=== PATIENT | female | born 1950 | race Caucasian/White ===

== ENCOUNTER → 2018-07-31 | Outpatient (CLI) | payer OTHER ==
[~2018-07-31] VITALS: Ht 149.9 cm; Wt 81.7 kg
[~2018-07-31] MED LIST: FOLIC ACID1 MG PO; HYDROCHLOROTHIA25 M2 PO; LIPITOR10 MG PO; PAROXETINE HCL20 MG PO; VITAMIN D-32000 UNIT PO
--- NOTE | 2018-08-01 16:06 | PATH ---
[facility] [place] [address] PATHOLOGY RPT PROCEDURE Name: JULITO LOO Room #: REG PARMINDER Avril.#: [id number] ������������������ Admission: 07/31/18 ������������������ Date of : 50 Discharge: Report #: [id number] Path Case #: [id number] [facility] Accession Number: [id number] . 01 Material submitted: . PART A: cecum - RANDOM BX CECUM AND ASCENDING COLON HX CROHNS R/O DYSPLASIA. Modifiers: ascending PART B: colon - RANDOM BX TRANSVERSE COLON HX CROHNS R/O DYSPLASIA. Modifiers: transverse PART C: colon - RANDOM BX DESCENDING COLON HX CROHNS R/O DYSPLASIA. Modifiers: descending PART D: colon - POLYP AT 50CM PART E: colon - RANDOM BX SIGMOID COLON HX CROHNS R/O DYSPLASIA. Modifiers: sigmoid PART F: rectum - RANDOM BX RECTUM HX CROHNS R/O DYSPLASIA . 01 Clinical history: . Pre-OP DX: Crohn's Post-OP DX: Colon polyp, diverticulosis, Hx Crohn's, rectal fistula . 02 Diagnosis: A. Large intestine, random cecum and ascending colon, endoscopic biopsy: - Mild chronic active colitis, history of Crohn's disease. - Negative for dysplasia or malignancy. . B. Large intestinal mucosa, transverse colon, endoscopic biopsy: - Mild chronic active colitis, history of Crohn's disease. - Negative for dysplasia or malignancy. . C. Large intestinal mucosa, random descending colon, endoscopic biopsy: - Mild chronic active colitis, history of Crohn's disease. - Negative for dysplasia or malignancy. . D. Polyp, at 50 cm, endoscopic biopsy: - Tubular adenoma. - Negative for high grade dysplasia. - Negative for active colitis. . E. Large intestinal mucosa, random sigmoid colon, endoscopic biopsy: - Quiescent colitis, history of Crohn's disease. - Negative for active colitis. - One fragment showing hyperplastic polyp with reactive changes. - Negative for dysplasia or malignancy. . F. Large intestinal mucosa, rectum, endoscopic biopsy: - Quiescent colitis, history of Crohn's disease. - Negative for active colitis. - One fragment showing hyperplastic polyp with reactive changes. [address] [address] PATHOLOGY RPT PROCEDURE Name: JULITO LOO Room #: REG PARMINDER Fonseca#: [id number] ������������������ Admission: 07/31/18 ������������������ Date of : 50 Discharge: Report #: [id number] Path Case #: [id number] - Negative for dysplasia or malignancy. . (IUV:mml; 08/01/2018) [facility]/08/01/2018 . 02 Electronically signed: . Vannessa Muhammad MD, Pathologist NPI- [id number] . 01 Gross description: . A. Received in formalin labeled "Julito Loo, random BX cecum and ascending colon, Hx Crohn's, rule out dysplasia," are multiple segments of brunson soft tissue measuring 2.0 x 0.5 x 0.2 cm in aggregate dimensions. The specimen is filtered and entirely submitted in cassette A1. . B. Received in formalin labeled "Julito Loo, random BX of transverse colon, Hx Crohn's, rule out dysplasia," are multiple segments of brunson soft tissue measuring 0.9 x 0.4 x 0.1 cm in aggregate dimensions. The specimen is filtered and entirely submitted in cassette B1. . C. Received in formalin labeled "Julito Loo, random BX descending colon, Hx Crohn's, rule out dysplasia," are multiple segments of brunson soft tissue measuring 1.5 x 0.6 x 0.2 cm in aggregate dimensions. The specimen is filtered and entirely submitted in cassette C1. . D. Received in formalin labeled "Julito Loo, polyp at 50 cm," is a 1.5 x 0.3 x 0.3 cm polypoid piece of brunson soft tissue. The margin is inked and the tissue is sectioned perpendicular to the margin and submitted in its entirely in cassette D1. . E. Received in formalin labeled "Julito Loo, random BX of sigmoid colon, Hx Crohn's, rule out dysplasia," are multiple segments of brunson soft tissue measuring 2.0 x 0.6 x 0.2 cm in aggregate dimensions. The specimen is filtered and entirely submitted in cassette E1. . F. Received in formalin labeled "Julito Loo, random BX of rectum, Hx Crohn's, rule out dysplasia," are multiple segments of brunson soft tissue measuring 1.5 x 0.4 x 0.1 cm in aggregate dimensions. The specimen is filtered and entirely submitted in cassette F1. (TSD; 07/31/2018) TOB/TOB . 02 Pathologist provided ICD-10: K52.9, D12.6, Z87.19 . 02 CPT . 949119, 894694, 460311, 915232, 879194, [id number] [address] [place] [address] PATHOLOGY RPT PROCEDURE Name: JULITO LOO Room #: REG [facility] M.R.#: [id number] ������������������ Admission: 07/31/18 ������������������ Date of : 50 Discharge: Report #: [id number] Path Case #: [id number] Specimen Comment: A courtesy copy of this report has been sent to Specimen Comment: [phone]. Specimen Comment: Report sent to Performed at: 01 [facility] Adelso Cruz [address] [facility] [address] [facility] [address] [facility] [address], [place], [place] [id number] MD Wood Hameed MD Phone: [phone] Performed at: [address] [facility] [address] [id number] MD Vannessa Muhammad MD Phone: [phone]
--- NOTE | 2018-08-02 10:54 | P ---
[facility] [place] [address] PROCEDURE REPORT Name: JULITO LOO Room #: REG [facility] Center[facility]elin[facility] [id number] Admission: 07/31/18 ������������������ Attend Phys: Rajinder Lozada MD Discharge: ������������������ Date of : 50 Report #: [id number] THIS REPORT FOR: //name// CC: EDY Lozada Physician staff OUTPATIENT COLONOSCOPY REPORT: BRIEF HISTORY: The patient is a 68-year-old woman with a history of Crohn disease of more than 20 years. She was initially diagnosed with ulcerative colitis, but later developed perianal fistulas. She has had a chronic rectovaginal fistula, which has not responded to surgical management. She presents for high risk screening colonoscopy due to her history of inflammatory bowel disease. She is not known to have small bowel disease. PREOPERATIVE DIAGNOSIS: Crohn disease, chronic. POSTOPERATIVE DIAGNOSES: 1. A 4-5 mm flat polyp at 50 cm. 2. Moderate sigmoid diverticulosis coli. 3. Rectal fistula. 4. Scarred mucosa consistent with previous Crohn's disease without evidence of active disease. MEDICATIONS: Deep sedation with propofol per anesthesia. SPECIMENS: 1. Random biopsies of cecum and ascending colon. 2. Random biopsies of transverse colon. 3. Random biopsies of descending colon. 4. Polyp at 50 cm. 5. Random biopsies of sigmoid colon. 6. Random biopsies of rectum. ESTIMATED BLOOD LOSS: 5 mL. PROCEDURE: Colonoscopy to cecum and terminal ileum with snare polypectomy and biopsy. FINDINGS: Prior to propofol sedation, procedure of colonoscopy was discussed with the patient as well as potential risks, benefits and complications. She indicates she understands and desires to proceed. DESCRIPTION OF PROCEDURE: With the patient in left lateral decubitus position, digital examination was completed. There was evidence of perianal scarring [facility] [address] [place] [address] PROCEDURE REPORT Name: JULITO LOO Room #: REG PARMINDER Fonseca#: [id number] Admission: 07/31/18 ������������������ Attend Phys: Rajinder Lozada MD Discharge: ������������������ Date of : 50 Report #: [id number] consistent with previous perianal disease. Subsequently, the Olympus video colonoscope was introduced in the rectum, advanced under direct vision to the cecum; done with minimal difficulty. The cecum was identified by the ileocecal valve and the appendiceal orifice. I was able to visualize the distal segment of terminal ileum. There is no evidence of active Crohn's disease. At that point, the scope was slowly withdrawn and careful circumferential views were obtained. Upon slow withdrawal of the scope, the prep was excellent. The mucosa was within normal limits, normal vascular pattern, normal light reflex. As we withdrew the scope, the mucosa was intact. Active Crohn's disease was not seen at any time during this examination. Random biopsies obtained of the colonic mucosa throughout. In the distal colon, there was evidence of scarring, again without evidence of active disease. In the descending colon, at 50 cm, a 4-5 mm flat polyp was removed by cold snare polypectomy. It has typical adenomatous appearance. Random biopsies obtained of the descending colon, and some random biopsies were obtained right at the site of the polypectomy. In the sigmoid colon, there was moderate sigmoid diverticular disease and endoscopic evidence of diverticulitis. Scope was withdrawn in the rectum and the mucosa was intact without evidence of active inflammatory disease. Upon retroflexion, tags were seen along the anal verge. In addition, at the dentate line, there was at least one not two chronic appearing fistula tracts without drainage. Scope was withdrawn. The patient tolerated the procedure well. CONDITION OF THE PATIENT UPON DISCHARGE: Following procedure, the patient become drowsy and will be discharged home when fully ambulatory. INSTRUCTIONS TO THE PATIENT AND FAMILY AT THE TIME OF DISCHARGE: We will follow up on path and make further recommendations. The polyp has a typical appearance of an adenoma. I suspect this is sporadic adenoma. However, we will await pathologic input. If there is no dysplasia, we will have her return in 2 years for a high risk screening colonoscopy. She is to return to see me in followup in the office in 1 year or sooner if needed. Withdrawal time from the cecum was 23 minutes 15 seconds. Last colonoscopy was approximately 3 years ago. ��������������������������������������������� <ELECTRONICALLY SIGNED> ���������������������������������������� By: Rajinder Lozada MD ��������������������������������������������� 08/02/18 1054 0822 1827 Rajinder Lozada MD /nt
== END | disposition home or self-care (01) ==
LOC: GI 05-29 11:24
DX: D12.5 Benign neoplasm of sigmoid colon (principal); K63.5 Polyp of colon; K52.9 Noninfective gastroenteritis and colitis, unspecified; K57.30 Diverticulosis of large intestine without perforation or abscess without bleeding; K60.4 Rectal fistula; I10 Essential (primary) hypertension; F32.9 Major depressive disorder, single episode, unspecified; F41.9 Anxiety disorder, unspecified; E78.5 Hyperlipidemia, unspecified; Z85.828 Personal history of other malignant neoplasm of skin; Z87.19 Personal history of other diseases of the digestive system; Z87.891 Personal history of nicotine dependence; Z90.49 Acquired absence of other specified parts of digestive tract; Z98.890 Other specified postprocedural states; Z79.899 Other long term (current) drug therapy; Z88.0 Allergy status to penicillin; Z88.6 Allergy status to analgesic agent
CPT/HCPCS: 62110; 62900

== ENCOUNTER → 2020-06-10 | Outpatient (CLI) | payer OTHER | LOC: LAB 10:07 | PROVIDERS: ATTEND Specialist | DX: Z01.812 Encounter for preprocedural laboratory examination (principal); Z20.822 Contact with and (suspected) exposure to COVID-19 ==

== ENCOUNTER → 2020-06-15 | Outpatient (CLI) | payer OTHER ==
[~2020-06-15] VITALS: Ht 149.9 cm; Wt 81.7 kg
[~2020-06-15] MED LIST changes: +HYDROCHLOROTHIA25 M1 PO; -HYDROCHLOROTHIA25 M2 PO; +LIPITOR 20 MG T20 M1 PO; -VITAMIN D-32000 UNIT PO; +VITAMIN D350 MCG PO
--- NOTE | ~2020-06-15 | P ---
[facility] [address] [place] [address] PROCEDURE REPORT Name: JULITO LOO Room #: REG PARMINDER Avril.#: [id number] Admission: 06/15/20 Attend Phys: Jovanny Crow Discharge: Date of : 50 Report #: [id number] THIS REPORT FOR: cc: EDY BENNETT MD Physician not on staff Jovanny Starks MD ~ DATE OF SERVICE: 06/15/2020 PROCEDURE PERFORMED: Colonoscopy with biopsies. HISTORY OF PRESENT ILLNESS: The patient is a 70-year-old female with a long history of inflammatory bowel disease, originally diagnosed with ulcerative colitis, later Crohn's disease. She has a chronic rectovaginal fistula. She has undergone 3 surgeries to repair this in the past, which have failed. She was followed by my partner, Dr. Lozada for many years, who is now retired. She had been on mesalamine in the past, which was failing therapy, but she has not required any medications for a number of years, other than budesonide. It appears at times for flares. They have discussed Remicade and other medications, but she has never tried these in the past. Last colonoscopy 2 years ago was essentially negative other than a polyp removed at that time as well as a rectal fistula noted. She does report some mucus and blood in her stools at this time for the last 2 weeks. Denies any abdominal pain. Her weight has been stable. No family history of colon cancer or inflammatory bowel disease. DESCRIPTION OF PROCEDURE: The risks and benefits of the procedure were explained to the patient, those risks including but not limited to bleeding, perforation and the risk of sedation. She understood these risks and gave informed consent. Sedation was given using propofol per anesthesia. Next, a digital rectal examination was initially performed, which was normal. Next, using a standard Olympus colonoscope, the scope was placed in the patient's anus and advanced under direct vision to the cecum. The overall prep was excellent. The cecum and ileocecal valve were normal in appearance. Terminal ileum was intubated and normal in appearance. The ascending colon was normal. Random biopsies were obtained to rule out the possibility of colitis. The transverse and descending colon were normal. A few small diverticula were noted in the sigmoid colon, no evidence of inflammation, otherwise normal. The upper and mid rectum was normal; however, in the distal rectum, there was a diffuse moderate colitis with several ulcerations. No evidence of bleeding, but the tissue was friable. Biopsies were obtained. There was also a small area of possible fistula opening with some granulation tissue. At this point, the scope was then withdrawn and the procedure terminated. The patient tolerated the procedure well. IMPRESSION: [facility] [address] [place] [address] PROCEDURE REPORT Name: JULITO LOO Room #: REG PARMINDER Fonseca#: [id number] Admission: 06/15/20 Attend Phys: Jovanny Crow Discharge: Date of : 50 Report #: [id number] 1. Distal rectal colitis with ulceration. 2. Likely opening of rectal fistula with granulation tissue. 3. Sigmoid diverticulosis. 4. Otherwise, normal colonoscopy. RECOMMENDATIONS: 1. Await biopsy results. 2. We will discuss options with the patient including suppository versus a repeat trial of steroids or budesonide. Thank you for allowing me to participate in her care. By: 0904 0917 Jovanny Starks MD /nt
--- NOTE | 2020-06-20 19:06 | PATH ---
[facility] [address] [place] [address] PATHOLOGY RPT PROCEDURE Name: JULITO LOO Room #: REG PARMNIDER M.R.#: [id number] Admission: 06/15/20 Date of : 50 Discharge: Report #: [id number] Path Case #: [id number] [facility] Accession Number: [id number] . 01 Material submitted: . PART A: colon - BIOPSY ASCENDING COLON. Modifiers: ascending PART B: rectum - BIOPSY RECTUM . 01 Clinical history: . A: HISTORY CROHN'S DISEASE B: COLITIS COLONOSCOPY HISTORY CROHN'S DISEASE, COLITIS DTS/COLONOSCOPY/CROHN'S . 02 Diagnosis: A. Large intestinal mucosa, ascending colon, history Crohn's disease, endoscopic biopsy: - Mild chronic active colitis with hyperplastic features, history of Crohn's disease. - Negative for dysplasia or malignancy. . B. Large intestinal mucosa, rectum colitis. Endoscopic biopsy: - Moderate to marked active colitis with crypt abscess formation. - Negative for dysplasia or malignancy. (IUV:pit 06/20/2020) QTP 06/20/2020 1814 Local . 02 Comment: Examination of the "ascending colon" shows mild chronic active colitis associated with scattered foci of cryptitis as well as hyperplastic features. Crypt abscesses as well as architectural abnormalities are not identified within this biopsy tissue. The tissue submitted as "rectum colitis" shows markedly expanded lamina propria, architectural abnormalities, crypt abscesses, scattered poorly formed granulomata along with focal surface ulceration. The provided history of Crohn's disease is noted. Features may be compatible with the same. There is no dysplasia or malignancy present within any of the biopsy tissues examined. Please correlate clinically. (IUV:pit 06/20/2020) . 02 Electronically signed: . Vannessa Muhammad MD, Pathologist NPI- [id number] . 01 Gross description: . A. The specimen is received in formalin, labeled "Julito Loo, [address] [address] PATHOLOGY RPT PROCEDURE Name: JULITO LOO Room #: REG CLI [facility].#: [id number] Admission: 06/15/20 Date of : 50 Discharge: Report #: [id number] Path Case #: [id number] ascending colon". Received are five segment of pale brunson tissue ranging in size from 0.2-0.6 cm in maximum dimensions. The specimen is submitted entirely in cassette A1. . B. The specimen is received in formalin, labeled "Julito Day, biopsy rectum". Received are five segments of pale brunson tissue ranging in size from 0.2-0.5 cm in maximum dimensions. The specimen is submitted entirely in cassette B1. (CAA; 06/17/2020) QAC/QAC 06/17/2020 1138 Local . 02 Pathologist provided ICD-10: K52.9 . 02 CPT . 339134, [id number] Specimen Comment: A courtesy copy of this report has been sent to [phone] Specimen Comment: [phone] Specimen Comment: Report sent to / DR BENNETT Performed at: [address], [place] [id number] MD Star Green MD Phone: [phone] Performed at: [address] [id number] MD Vannessa Muhammad MD Phone: [phone]
== END | disposition home or self-care (01) ==
LOC: GI 07:03
PROVIDERS: ATTEND Specialist
DX: K92.1 Melena (principal); K57.30 Diverticulosis of large intestine without perforation or abscess without bleeding; K51.90 Ulcerative colitis, unspecified, without complications; K52.9 Noninfective gastroenteritis and colitis, unspecified; I10 Essential (primary) hypertension; E78.5 Hyperlipidemia, unspecified; F41.9 Anxiety disorder, unspecified; G47.30 Sleep apnea, unspecified; Z87.891 Personal history of nicotine dependence; Z98.890 Other specified postprocedural states; Z79.899 Other long term (current) drug therapy; Z90.49 Acquired absence of other specified parts of digestive tract; Z85.820 Personal history of malignant melanoma of skin
CPT/HCPCS: 62110; 62900